=== PATIENT | male | born 1985 | race Caucasian/White ===

== ENCOUNTER 2019-05-25 14:15 | Emergency (ER) | payer SELFPAY ==
[2019-05-25 14:23] VITALS: BP 150/86; PULSE 74; RESP 16; TEMP 36.9; O2SAT 100
--- NOTE | 2019-05-25 14:38 | ED.EYEPROB ---
HPI - Eye Problem General Chief complaint: Eye Problems Stated complaint: left eye issue Time Seen by Provider: 05/25/19 14:26 History of Present Illness HPI Narrative: Patient is a 34-year-old male who presents complaining of left eye pain x1 day. He reports pain, discharge, tearing, photophobia, and blurred vision starting yesterday, increase in this a.m. Patient denies known injury. Patient does not wear contact lenses. Patient denies using [id number] medications for pain relief. MD chief complaint: eye pain and eye redness Related Data Allergies Allergy/AdvReac Type Severity Reaction Status Date / Time No Known Allergies Allergy Verified 05/25/19 14:40 Review of Systems Review of Systems: Narrative: CONSTITUTIONAL: Denies fever, chills, or sweats. EYES: Reports photophobia, visual changes, redness, and discharge. ENT: Denies rhinorrhea, congestion, sore throat, or otalgia. CARDIOVASCULAR: Denies chest pain, palpitations, or edema. RESPIRATORY: Denies cough or dyspnea. GASTROINTESTINAL: Denies abdominal pain, nausea, vomiting, or diarrhea. GENITOURINARY: Denies dysuria or hematuria. SKIN: Denies rash or itching. MUSCULOSKELETAL: Denies back pain, joint pain, or myalgia. NEUROLOGIC: Denies headache, numbness, dizziness, or weakness. PSYCHIATRIC: Denies anxiety or depression. [facility] Social History Social History (Updated 05/25/19 @ 14:41 by JOSSELINE Baez) Smoking status: Current every day smoker Tobacco type: cigarettes Alcohol intake: never Gender identity (if verbalized by the patient): Male Exam Narrative: Exam Narrative: GENERAL: Well-appearing, well-nourished, and in no acute distress. HEAD: Normocephalic, atraumatic. EYES: EOMI. sclera and conjunctiva are reddened, tearing noted, yellow discharge at inner canthus ENT: Mucous membranes pink and moist. Nares clear. No rhinorrhea. TMs normal bilaterally. Throat normal. Uvula midline. NECK: AROM. Supple. No lymphadenopathy. CHEST: No respiratory distress. Clear to auscultation. HEART: Regular rate and rhythm. No murmur appreciated. Normal peripheral pulses. GI: Soft, nontender without rebound, or guarding. No distention. Bowel sounds normal in all quadrants. MUSCULOSKELETAL: No bony tenderness. EXTREMITIES: Normal range of motion. No edema. SKIN: Warm, dry, no rash. NEURO: No focal deficits. Alert and oriented x3. Gait steady. PSYCH: Normal affect. No signs of depression or anxiety. Course Vital Signs Vital signs: Vital Signs Temperature 36.9 C 05/25/19 14:23 Pulse Rate 74 05/25/19 14:23 Respiratory Rate 16 05/25/19 14:23 Blood Pressure 150/86 H 05/25/19 14:23 Pulse Oximetry 100 05/25/19 14:23 Temperature 36.9 C 05/25/19 14:23 Pulse Rate 74 05/25/19 14:23 Respiratory Rate 16 05/25/19 14:23 Blood Pressure 150/86 H 05/25/19 14:23 Pulse Oximetry 100 05/25/19 14:23 Procedures Other Procedure Procedure 1: Other Procedure: Left eye was anesthetized with 1 drop of tetracaine and anesthesia was achieved. The eye was flushed with eyewash. Lid was inverted and examined. Moistened Q-tip was used to sweep underneath the upper eyelid with no foreign bodies resulting. Cornea was dyed with fluorescein and corneal abrasion noted. Patient tolerated procedure well. MDM - Eye Problem MDM Narrative Medical decision making narrative: Patient has corneal abrasion. Antibiotic ointment to be prescribed, along with NSAID for pain. Patient is safe for discharge to home with outpatient follow-up care. Differential Diagnosis Differential diagnosis: Likely corneal abrasion Critical Care Time Critical Care Time Critical Care Time: No Discharge Plan Discharge Clinical Impression: Corneal abrasion Patient Disposition: Home, Self-Care Condition: Stable Instructions: Antibiotic Form, Corneal Abrasion (ED) Additional Instructions: Use eye ointment as directed. You may take ibuprofen
== END 2019-05-25 16:28 | disposition home or self-care (01) ==
PROVIDERS: Emergency Provider Nurse Practitioner
DX: S05.02XA Injury of conjunctiva and corneal abrasion without foreign body, left eye, initial encounter (principal); F17.210 Nicotine dependence, cigarettes, uncomplicated; X58.XXXA Exposure to other specified factors, initial encounter
CPT/HCPCS: 65220; 99283; A9270